=== PATIENT | female | born 1940 | race Caucasian/White ===

== ENCOUNTER 2020-12-01 11:45 | Inpatient (IN) ==
[2020-12-01] MEDS ORDERED: LACTATED RINGERS 1,000 ML IV ONE ×2 (11:53→12:23)
--- NOTE | 2020-12-01 12:01 | Emergency Department Note ---
HPI General Chief complaint: Altered Mental Status Stated complaint: altered mental status Time Seen by Provider: 12/01/20 11:53 Source: EMS Mode of arrival: EMS Limitations: altered mental status History of Present Illness HPI Narrative: Patient is an 80-year-old lady who arrives emergency department by ambulance complaining of altered mental status. History is provided by paramedics and review of the patient's medical records and is quite limited due to the patient's current medical condition. The patient apparently was in her usual state of health last night when going to bed. Ever since waking up this m orning, staff at her long-term have noticed that she has been confused and less interactive than usual. Her symptoms were sudden onset has been progressively worsening. Staff became concerned with the persistent nature of her symptoms they called 911 and she was transported to the hospital. Paramedics found her to have a prehospital glucose of 98. They noted that she was intermittently following commands but quite somnolent in route to the hospital. Nothing seems to make her symptoms any better or worse. Patient is unable to provide any useful history. Related Data Home Medications Medication Instructions Recorded Confirmed ascorbic acid (vitamin C) 500 mg 500 mg PO BID cap 04/02/20 12/01/20 capsule calcium carbonate 500 mg calcium 500 mg PO BID 04/02/20 12/01/20 (1,250 mg) chewable tablet cholecalciferol (vitamin D3) 50 50 mcg PO QDAY 04/02/20 12/01/20 mcg (2,000 unit) capsule melatonin 5 mg capsule 10 mg PO QHS cap 04/02/20 12/01/20 miconazole nitrate 2 % topical 1 applic TOPICAL PRN g 04/02/20 12/01/20 cream [id number] PO QDAY 04/02/20 10/15/20 [Centrum Silver] nystatin 100,000 unit/gram topical 1 applic TOPICAL BID PRN 04/02/20 12/01/20 powder solace cream 300mg CBD/3mg THC See Rx Instructions .ROUTE .COMPLEX 05/14/20 12/01/20 acetaminophen 650 mg 650 mg PO TID tab 10/15/20 12/01/20 tablet,extended release buspirone mg PO 12/01/20 Previous Rx's Medication Instructions Recorded aspirin 81 mg tablet,delayed 81 mg PO QDAY #90 tab 06/17/20 release rosuvastatin 5 mg tablet 5 mg PO QDAY #90 tab 06/17/20 amlodipine 10 mg tablet 10 mg PO QDAY #90 tab 06/23/20 cyanocobalamin (vitamin B-12) 1,000 mcg IM QMONTH #3 ml 06/23/20 1,000 mcg/mL injection solution ferrous sulfate 325 mg (65 mg 325 mg PO BID #180 tab 06/23/20 iron) tablet levothyroxine 100 mcg tablet 100 mcg PO QDAY #90 tab 06/23/20 omeprazole 40 mg capsule,delayed 40 mg PO QDAY #90 cap 06/23/20 release duloxetine 60 mg capsule,delayed 60 mg PO QDAY #90 cap 07/28/20 release hydroxyzine HCl 25 mg tablet 25 mg PO QDAY PRN #20 tab 07/28/20 pregabalin 150 mg capsule 150 mg PO TID #90 cap 11/16/20 oxycodone 5 mg tablet 5 mg PO BID #60 tab 12/01/20 Allergies Allergy/AdvReac Type Severity Reaction Status Date / Time bacitracin Allergy Unknown Rash, Verified 10/15/20 13:33 [From Neosporin Swelling ([id number])] carbamazepine [From Tegretol] Allergy Unknown Shuts down Verified 10/15/20 13:33 whole system slowly Neomycin Allergy Unknown Rash, Verified 10/15/20 13:33 [From Neosporin Swelling ([id number])] polymyxin B Allergy Unknown Rash, Verified 10/15/20 13:33 [From Neosporin Swelling ([id number])] risperidone Allergy Unknown Unknown Verified 10/15/20 13:33 Review of Systems ROS ROS Narrative: Narrative: Limitations: ROS unobtainable due to patients medical condition [facility] Narrative Patient History Narrative: Narrative: Medical/Surgical/Family History All Active Problems (Updated 12/01/20 @ 17:28 by Chava Bob DO) GERD (gastroesophageal reflux disease) (Chronic) Hypertension (Chronic) Depression (Chronic) Vitamin B deficiency, unspecified (Chronic) COPD (chronic obstructive pulmonary disease) (Chronic) Stroke (Chronic) Anxiety disorder (Chronic) Chronic neck pain (Chronic) Hypersomnia, unspecified (Chronic) Barretts esophagus (Chronic) Spasm of muscle (Chronic) Panic disorder without agoraphobia (Chronic) Dizziness (Chronic) Vertigo (Chronic) Fall (Chronic) History of (Chronic) History of gastric bypass (Chronic ~1998) History of back surgery (Chronic ~2001) Polyneuropathy (Chronic) Sciatica (Chronic) Chronic respiratory failure (Chronic) Chronic pain (Chronic) Osteoporosis (Chronic) Hypothyroidism (Chronic) Leg pain, bilateral (Chronic) Left hip pain (Chronic) Diabetes mellitus (Chronic) Dysphagia (Chronic) History of narcotic addiction (Chronic) 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) CKD stage G3b/A2, GFR 30-44 and albumin creatinine ratio 30-299 mg/g (Chronic) Microalbuminuria (Acute) Epistaxis (Acute) Substance abuse in remission (Acute) Knee pain, left (Chronic) Aortic valve insufficiency (Acute) Esophageal dysmotility (Acute) Arthritis (Chronic) Breast nodule (Acute) Opioid overdose (Acute) Medical History Anxiety disorder Aortic valve insufficiency mild ECHO 08/2020 Arthritis Barretts esophagus Breast nodule Left Chronic neck pain Chronic pain Chronic respiratory failure 2 L O2 CKD stage G3b/A2, GFR 30-44 and albumin creatinine ratio 30-299 mg/g COPD (chronic obstructive pulmonary disease) Depression Diabetes mellitus A1c 5.1% (06/2020) Dizziness Dysphagia Solids Esophageal dysmotility Fall GERD (gastroesophageal reflux disease) Hip fracture History of narcotic addiction Around year 1999 Hypersomnia, unspecified Hypertension Hypothyroidism Knee pain, left Left hip pain Leg pain, bilateral Medicare annual wellness visit, initial Nausea Osteoporosis Panic disorder without agoraphobia Polyneuropathy Sciatica Shortness of breath at rest Spasm of muscle Stroke Substance abuse in remission Systolic murmur Vertigo Vitamin B deficiency, unspecified Surgical History History of back surgery (~2001) History of X2 (195 and 1961) History of gastric bypass (~1998) Family History Grandmother Bladder cancer Maternal Brother Diabetes mellitus, type II Heart disease Hypertension Mother Hypertension Arthritis Chronic pain Father Hypertension Social History Smoking Status: Former smoker Alcohol Intake Frequency: does not drink Substance Use: does not use Exam Narrative Narrative: I reviewed the vital signs. Gen -patient is drowsy but arousable to brisk verbal stimuli and in no acute distress. The patient is well groomed. HEENT -head is atraumatic. There is no conjunctival pallor or scleral icterus. Mucous membranes are dry. CV -S1-S2 regular rate and rhythm. Peripheral pulses are palpable. There is no JVD. Resp -breathing is nonlabored. Lungs are clear to auscultation bilaterally. There is no cyanosis. GI - Abdomen is soft and nontender to palpation. There is no guarding or rebound tenderness. Derm -skin is warm and dry. There is no visible rash. MSK -present extremities are atraumatic. Psych -patient has a flat affect. The patient does not appear internally stimulated. Neuro -patient provides inconsistent one-word answers to questions. She is able to say her name but cannot tell me the year. She inconsistently follows some simple commands. There is no facial asymmetry. There is no obvious dysarthria or aphasia. Muscle strength is grossly symmetric in all 4 extremities. Pupils are constricted and reactive to light bilaterally. NIHSS=5 General Limitations: altered mental status Course Vital Signs Vital signs: Vital Signs Pulse Rate 65 12/01/20 11:46 Respiratory Rate 14 12/01/20 11:46 Blood Pressure 97/61 12/01/20 11:46 Pulse Oximetry (%) 92 12/01/20 11:46 Temperature 98.7 F 12/01/20 12:14 Pulse Rate 51 L 12/01/20 16:28 Respiratory Rate 14 12/01/20 12:14 Blood Pressure 161/111 12/01/20 16:28 Pulse Oximetry (%) 100 12/01/20 16:28 [facility] Narrative Medical decision making narrative: Patient presents with altered mental status. On arrival, she is quite somnolent but does not display any lateralizing neurologic findings concerning for acute ischemic stroke. CT scan reveals a possible lacunar infarct but no intracranial hemorrhage and no signs of massive stroke that would cause such profound neurologic deficits. Labs do not reveal any significant metabolic derangements. On reassessment, she remained quite somnolent and given this as well as the reported history of opiates being administered at her home we did administer 0.4 mg of naloxone. The patient reportedly then became awake and alert and was conversant with her nurse requesting discharge. By the time I returned to the room to reassess the patient she was once again somnolent with markedly constricted pupils. She was then given a second dose of naloxone and once again awoke and was able to converse with her nurse with no gross neurologic deficits. However once again upon my return to the room the patient was obtunded. She is protecting her airway and oxygenating well on her home oxygen. Given this I do not think she would benefit from a naloxone infusion. Overall the clinical presentation appears most consistent with an opioid overdose. As she has required 2 doses of naloxone and is still having per wound mental status changes I think she would benefit from admission and observation until she has fully metabolized the opioids. I discussed her history examination diagnostic findings with Dr. Aleman. He agrees with the plan to forego lumbar puncture given the patient's profound response to naloxone and accepts admission to his service. Critical care time I provided 31 minutes of critical care time. This was in addition to any separately billable procedures. The patient was evaluated for mental status changes and assess for possible ischemic stroke meningitis intracranial hemorrha ge or drug toxicity. She was given multiple doses of naloxone to facilitate this assessment and to prevent further progression to respiratory failure.. The patient was closely monitored for response to treatment and stability of vital signs throughout their emergency department stay. Lab Data Lab results reviewed: Yes I reviewed the patient's lab results. Result diagrams: 12/01/20 11:53 12/01/20 11:53 Labs: Lab Results 12/01/20 12/01/20 12/01/20 Range/Units 11:53 11:53 12:45 WBC 4.2 L (4.5-11.0) K/mcL RBC 3.75 (3.59-5.38) M/mcL Hgb 11.0 L (11.2-15.7) g/dL Hct 34.6 (34.1-44.9) % MCV 92.3 (80.0-100.0) fL MCH 29.3 (26.0-34.0) pg MCHC 31.8 (31.0-36.0) g/dL RDW 14.5 (11.5-14.5) % Plt Count 123 L (140-440) K/mcL MPV 11.6 H (7.4-10.4) fL Neut % (Auto) 49.1 (38.0-78.0) % Lymph % (Auto) 35.6 (15.5-49.0) % [place] % (Auto) 8.6 (1.0-12.0) % Eos % (Auto) 5.0 (0.0-7.0) % Baso % (Auto) 1.7 (0.0-2.0) % Lymph # (Auto) 1.50 (1.50-4.80) K/mcL [place] # (Auto) 0.36 (0.10-0.90) K/mcL Eos # (Auto) 0.21 (0.00-0.70) K/mcL Baso # (Auto) 0.07 (0.00-0.30) K/mcL Absolute Neutrophils 2.07 (1.80-8.00) K/mcL Sodium 140 (133-145) mmol/L Potassium 4.4 (3.3-5.1) mmol/L Chloride 105 (96-108) mmol/L Carbon Dioxide 27 (22-30) mmol/L Anion Gap 8.0 (8.0-16.0) BUN 21 (8-23) mg/dL Creatinine 0.8 (0.6-1.1) mg/dL GFR Calculation 69 Glucose 83 (70-105) mg/dL Calcium 8.4 L (8.6-10.4) mg/dL Total Bilirubin 0.3 (0.1-1.0) mg/dL AST 21 (<32) U/L ALT < 5 (<40) U/L Alkaline Phosphatase 66 (39-117) U/L Total Protein 5.9 (5.9-8.4) gm/dL Albumin 3.0 L (3.2-5.2) gm/dL Globulin 2.9 (2.2-3.7) gm/dL Albumin/Globulin Ratio 1.0 (1.0-2.3) TSH 0.71 (0.27-5.01) uIU/mL Urine Color Yellow Urine Appearance Clear (Clear) Urine pH 5.0 (5.0-9.0) Ur Specific [place] 1.011 (1.000-1.035) Urine Protein Negative (Negative) mg/dL Urine Glucose (UA) Negative (Negative) mg/dL Urine Ketones Negative (Negative) mg/dL Urine Occult Blood Negative (Negative) mg/dL Urine Nitrate Negative (Negative) Urine Bilirubin Negative (Negative) mg/dL Urine Urobilinogen Negative mg/dL Ur Leukocyte Esterase Negative (Negative) /uL Ur Culture Indicated? No ED POC Tests ED POC Tests: GENE - SARS Antigen Negative EKG Data EKG #1: EKG attestation: Yes I reviewed and interpreted this EKG. EKG results narrative: EKG performed at 12:09 PM: Sinus rhythm, rate 61. Normal P wave QRS and T wave morphology. No ST segment deviation. Normal [place] QRS and QTc duration. No old EKG immediately available for comparison. EKG was interpreted by me. Discharge Plan Patient/Caregiver Discharge Instructions Pt seen by SOAP MAKER/PA only: No Clinical Impression: Opioid overdose Patient Disposition: Xfer As Inpt ([facility]) Condition: Fair Follow up with: Julius Jimenez MD [Primary Care Provider] - Prescriptions: No Action duloxetine 60 mg capsule,delayed release(DR/EC) 60 mg PO QDAY Qty: 90 RF: 1 hydroxyzine HCl 25 mg tablet 25 mg PO QDAY PRN (Reason: anxiety) Qty: 20 RF: 0 cyanocobalamin (vitamin B-12) 1,000 mcg/mL solution 1,000 mcg IM QMONTH Qty: 3 RF: 1 levothyroxine 100 mcg tablet 100 mcg PO QDAY Qty: 90 RF: 1 omeprazole 40 mg capsule,delayed release(DR/EC) 40 mg PO QDAY Qty: 90 RF: 1 ferrous sulfate 325 mg (65 mg iron) tablet 325 mg PO BID Qty: 180 RF: 1 amlodipine 10 mg tablet 10 mg PO QDAY Qty: 90 RF: 1 pregabalin 150 mg capsule 150 mg PO TID Qty: 90 RF: 2 oxycodone 5 mg tablet 5 mg PO BID Qty: 60 RF: 0 solace cream 300mg CBD/3mg THC See Rx Instructions .ROUTE .COMPLEX RF: 0 cholecalciferol (vitamin D3) 50 mcg (2,000 unit) capsule 50 mcg PO QDAY RF: 0 ascorbic acid (vitamin C) 500 mg capsule 500 mg PO BID RF: 0 [id number] PO QDAY RF: 0 calcium carbonate 500 mg calcium (1,250 mg) tablet,chewable 500 mg PO BID RF: 0 melatonin 5 mg capsule 10 mg PO QHS RF: 0 miconazole nitrate 2 % cream 1 applic TOPICAL PRN RF: 0 nystatin 100,000 unit/gram powder 1 applic TOPICAL BID PRN (Reason: redness) RF: 0 acetaminophen 650 mg tablet extended release 650 mg PO TID RF: 0 aspirin [Adult Aspirin Regimen] 81 mg tablet,delayed release (DR/EC) 81 mg PO QDAY Qty: 90 RF: 3 rosuvastatin 5 mg tablet 5 mg PO QDAY Qty: 90 RF: 3 buspirone 5 mg tablet PO RF: 0
[2020-12-01] MEDS ORDERED: cefTRIAXone 1 GM VIAL IV ONE ×2 (12:23→14:41)
[2020-12-01 13:41] LABS: Appearance,Urine CLEAR (Clear); Bilirubin,Urine Negative (Negative); Color,Urine YELLOW; Culture Indicated,Urine No; Glucose,Urine (UA) Negative (Negative); Ketones,Urine Negative (Negative); Leukocyte Esterase,Urine Negative /uL (Negative); Nitrate,Urine Negative (Negative); Protein,Urine Negative (Negative); Specific Gravity,Urine 1.011 (1.000-1.035); Urine Blood Negative (Negative); Urobilinogen,Urine Negative
[2020-12-01 13:50] LABS: ALT/SGPT < 5 U/L (<40); AST/SGOT 21 U/L (<32); Alkaline Phosphatase 66 U/L (39-117); Bilirubin,Total 0.3 mg/dL (0.1-1.0); Blood Urea Nitrogen 21 mg/dL (8-23); Calcium 8.4 mg/dL (8.6-10.4); Carbon Dioxide 27 mmol/L (22-30); Chloride 105 mmol/L (96-108); Globulin 2.9 gm/dL (2.2-3.7); Glomerular Filtration Rate 69; Glucose 83 mg/dL (70-105)
[2020-12-01 13:56] LABS: Basophils # (Auto) 0.07 K/mcL (0.00-0.30); Basophils % (Auto) 1.7 % (0.0-2.0); Eosinophils # (Auto) 0.21 K/mcL (0.00-0.70); Hematocrit 34.6 % (34.1-44.9); Lymphocytes % (Auto) 35.6 % (15.5-49.0); Mean Cell Volume 92.3 fL (80.0-100.0); Mean Corpuscular HGB Conc 31.8 g/dL (31.0-36.0); Mean Platelet Volume 11.6 fL (7.4-10.4); Monocytes # (Auto) 0.36 K/mcL (0.10-0.90); Monocytes % (Auto) 8.6 % (1.0-12.0); Neutrophils % (Auto) 49.1 % (38.0-78.0); Platelet Count 123 K/mcL (140-440); RBC 3.75 M/mcL (3.59-5.38); Red Cell Distribution Width 14.5 % (11.5-14.5); WBC 4.2 K/mcL (4.5-11.0)
[2020-12-01 13:58] LABS: Thyroid Stimulating Hormone 0.71 uIU/mL (0.27-5.01)
[2020-12-01] MEDS ORDERED: NALOXONE HCL 0.4 MG/ML VIAL IV ONE ×2 (14:13→15:05)
--- NOTE | 2020-12-01 14:13 | XRay Report ---
HISTORY: Fell with left hip injury FINDINGS: No fracture or dislocation are present. There is moderate arthritis in the left hip with mild joint space narrowing and a ring of spurs around the margin of the femoral head. There also large spurs arising from the greater trochanter. There is an old healed fracture in the proximal right hip. Extensive postsurgical changes are present following fusion throughout the lumbar spine extending down to the sacrum. The bones are osteoporotic. IMPRESSION: Arthritis in the left hip with no fracture. No change since 06/10/20 Interpreted and Authenticated by: Ari Escobar 12/01/20
--- NOTE | 2020-12-01 14:15 | XRay Report ---
HISTORY: Altered mental status, pneumonia FINDINGS: The heart is mildly enlarged. There is a vague haziness in the lung parenchyma around both estrellita and in both lower lobes. There are also several curly B lines in the periphery of both lower lobes. No pleural effusion is present. There is no lobar consolidation. Aorta is moderately tortuous. IMPRESSION: Cardiomegaly Pneumonia versus congestive heart failure. Interpreted and Authenticated by: Ari Escobar 12/01/20
--- NOTE | 2020-12-01 14:32 | Cat Scan Report ---
History: Altered mental status The radiation exposure was limited using dose reduction technology. FINDINGS: In the anterior limb of the left internal capsule there is a subtle zone of decreased attenuation which measures 6 x 7 mm in size. There is no mass effect. Larger confluent areas of decreased attenuation are present in the jain radiata and centrum semiovale in the frontal and parietal lobes bilaterally. There is no evidence of cortical infarct. No hemorrhage or mass effect are present. There is mild generalized atrophy. The ventricles and cisterns are normal. There are few calcifications in the vertebral arteries at the foramen magnum and in the cavernous portions of both internal carotids. Bone windows show no skull lesion. IMPRESSION: Age-related degenerative changes with atrophy and white matter ischemia or degeneration. Possible small lacunar infarct in the anterior limb of the left internal capsule. Dr. Bob was called with the report Interpreted and Authenticated by: Ari Escobar 12/01/20
[2020-12-01] MEDS ORDERED: VANCOMYCIN PER PHARMACY IV ONE (14:41)
[2020-12-01] MEDS ORDERED: VANCOMYCIN 1,500 MG in 0.9 % SODIUM CHLORIDE 500 ML IV ONE (15:00)
[2020-12-01] MEDS ORDERED: ACYCLOVIR SODIUM 500 MG VIAL IV SCH (15:00)
--- NOTE | 2020-12-01 16:04 | Internal Med History&Physical ---
HPI History of Present Illness Patient information: Note initiated : 12/01/20 at 4:01 pm Service Date, if different from initiated Date: [] Patient: Mely Cullen 80 y/o F admitted on for altered mental status. Chief Complaint: [confusion] History of present illness: Ms. Cullen is a 80 year old female with a history of multiple comorbidities including hypertension, COPD (on 2 l/min oxygen), prior stroke, Lam's esophagus, depression, history of gastric bypass, hypothyroidism, obesity, chronic pain on opioids who lives in a alf and was brought to the [facility] ED on 12/01/20 for altered mental status. The patient was given narcan .4 mg IV in the ED twice followed by brief improvement in cognition each time. The patient was afebrile and there were no clinical signs of infection. The patient had a noncontrast head CT in the ED which showed a possible small lacunar infarct in the anterior limb of the left internal capsule however that did not explain the patient's encephalopathy. Laboratory work did not reveal a metabolic explanation for encephalopathy. The most likely explanation for the patient's encephalopathy is opioid overdose. Hospital medicine was asked to admit the patient. Review of systems:unable to obtain due to altered mental status Physical exam General: Chronically ill appearing female in no apparent distress. Head: Atraumatic, normal inspection. Eyes: bilateral miosis, no scleral icterus. Neck: full ROM Respiratory: 2 l/min nasal canula oxygen, no respiratory distress. Cardiovascular: normal rate and rhythm, S1, S2. GI/Abdominal: soft, nontender, no guarding. Extremities: full range of motion, nontender. Neurological: CN II-XII intact, intact motor, intact sensation. Psychiatric: drowsy Skin: warm, normal color PFSH PFSH All Active Problems (Updated 12/01/20 @ 17:28 by Chava Bob DO) GERD (gastroesophageal reflux disease) (Chronic) Hypertension (Chronic) Depression (Chronic) Vitamin B deficiency, unspecified (Chronic) COPD (chronic obstructive pulmonary disease) (Chronic) Stroke (Chronic) Anxiety disorder (Chronic) Chronic neck pain (Chronic) Hypersomnia, unspecified (Chronic) Barretts esophagus (Chronic) Spasm of muscle (Chronic) Panic disorder without agoraphobia (Chronic) Dizziness (Chronic) Vertigo (Chronic) Fall (Chronic) History of (Chronic) History of gastric bypass (Chronic ~1998) History of back surgery (Chronic ~2001) Polyneuropathy (Chronic) Sciatica (Chronic) Chronic respiratory failure (Chronic) Chronic pain (Chronic) Osteoporosis (Chronic) Hypothyroidism (Chronic) Leg pain, bilateral (Chronic) Left hip pain (Chronic) Diabetes mellitus (Chronic) Dysphagia (Chronic) History of narcotic addiction (Chronic) 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) CKD stage G3b/A2, GFR 30-44 and albumin creatinine ratio 30-299 mg/g (Chronic) Microalbuminuria (Acute) Epistaxis (Acute) Substance abuse in remission (Acute) Knee pain, left (Chronic) Aortic valve insufficiency (Acute) Esophageal dysmotility (Acute) Arthritis (Chronic) Breast nodule (Acute) Opioid overdose (Acute) Medical History Anxiety disorder Aortic valve insufficiency mild ECHO 08/2020 Arthritis Barretts esophagus Breast nodule Left Chronic neck pain Chronic pain Chronic respiratory failure 2 L O2 CKD stage G3b/A2, GFR 30-44 and albumin creatinine ratio 30-299 mg/g COPD (chronic obstructive pulmonary disease) Depression Diabetes mellitus A1c 5.1% (06/2020) Dizziness Dysphagia Solids Esophageal dysmotility Fall GERD (gastroesophageal reflux disease) Hip fracture History of narcotic addiction Around year 1999 Hypersomnia, unspecified Hypertension Hypothyroidism Knee pain, left Left hip pain Leg pain, bilateral Medicare annual wellness visit, initial Nausea Osteoporosis Panic disorder without agoraphobia Polyneuropathy Sciatica Shortness of breath at rest Spasm of muscle Stroke Substance abuse in remission Systolic murmur Vertigo Vitamin B deficiency, unspecified Surgical History History of back surgery (~2001) History of X2 (1958 and 1961) History of gastric bypass (~1998) Family History Grandmother Bladder cancer Maternal Brother Diabetes mellitus, type II Heart disease Hypertension Mother Hypertension Arthritis Chronic pain Father Hypertension Social History adopted: No foster care: No housing: assisted living facility marital status: occupational status: retired smoking status: Former smoker quit date: 02/19/1959 pack-years: 5 alcohol intake frequency: does not drink substance use type: does not use MEDS/ALLERGIES Home Medications and Allergies Home Medications Medication Instructions Recorded Confirmed Type ascorbic acid (vitamin C) 500 mg 500 mg PO BID cap 04/02/20 12/01/20 History capsule calcium carbonate 500 mg calcium 500 mg PO BID 04/02/20 12/01/20 History (1,250 mg) chewable tablet cholecalciferol (vitamin D3) 50 50 mcg PO QDAY 04/02/20 12/01/20 History mcg (2,000 unit) capsule melatonin 5 mg capsule 10 mg PO QHS cap 04/02/20 12/01/20 History miconazole nitrate 2 % topical 1 applic TOPICAL PRN g 04/02/20 12/01/20 History cream [id number]-[id number] 1 tab PO QDAY 04/02/20 10/15/20 History [Centrum Silver] nystatin 100,000 unit/gram topical 1 applic TOPICAL BID PRN 04/02/20 12/01/20 Hi story powder solace cream 300mg CBD/3mg THC See Rx Instructions .ROUTE .COMPLEX 05/14/20 12/01/20 History aspirin 81 mg tablet,delayed 81 mg PO QDAY #90 tab 06/17/20 12/01/20 Rx release rosuvastatin 5 mg tablet 5 mg PO QDAY #90 tab 06/17/20 12/01/20 Rx amlodipine 10 mg tablet 10 mg PO QDAY #90 tab 06/23/20 12/01/20 Rx cyanocobalamin (vitamin B-12) 1,000 mcg IM QMONTH #3 ml 06/23/20 12/01/20 Rx 1,000 mcg/mL injection solution ferrous sulfate 325 mg (65 mg 325 mg PO BID #180 tab 06/23/20 12/01/20 Rx iron) tablet levothyroxine 100 mcg tablet 100 mcg PO QDAY #90 tab 06/23/20 12/01/20 Rx omeprazole 40 mg capsule,delayed 40 mg PO QDAY #90 cap 06/23/20 12/01/20 Rx release duloxetine 60 mg capsule,delayed 60 mg PO QDAY #90 cap 07/28/20 12/01/20 Rx release hydroxyzine HCl 25 mg tablet 25 mg PO QDAY PRN #20 tab 07/28/20 12/01/20 Rx acetaminophen 650 mg 650 mg PO TID tab 10/15/20 12/01/20 History tablet,extended release pregabalin 150 mg capsule 150 mg PO TID #90 cap 11/16/20 12/01/20 Rx buspirone 5 mg PO BID 12/01/20 12/01/20 History oxycodone 5 mg tablet 5 mg PO BID #60 tab 12/01/20 12/01/20 Rx Allergies Allergy/AdvReac Type Severity Reaction Status Date / Time bacitracin Allergy Unknown Rash, Verified 10/15/20 13:33 [From Neosporin Swelling ([id number])] carbamazepine [From Tegretol] Allergy Unknown Shuts down Verified 10/15/20 13:33 whole system slowly Neomycin Allergy Unknown Rash, Verified 10/15/20 13:33 [From Neosporin Swelling ([id number])] polymyxin B Allergy Unknown Rash, Verified 10/15/20 13:33 [From Neosporin Swelling ([id number])] risperidone Allergy Unknown Unknown Verified 10/15/20 13:33 EXAM Constitutional Vitals: Temp Pulse Resp BP Pulse Ox 98.7 F 69 14 131/75 100 12/01/20 12:14 12/01/20 15:32 12/01/20 12:14 12/01/20 15:32 12/01/20 15:32 DATA Data Completed and Pending Labs: Labs from last 24 hours 12/01/20 12/01/20 12/01/20 12:45 11:53 11:53 WBC 4.2 L RBC 3.75 Hgb 11.0 L Hct 34.6 MCV 92.3 MCH 29.3 MCHC 31.8 RDW 14.5 Plt Count 123 L MPV 11.6 H Neut % (Auto) 49.1 Lymph % (Auto) 35.6 [place] % (Auto) 8.6 Eos % (Auto) 5.0 Baso % (Auto) 1.7 Lymph # (Auto) 1.50 [place] # (Auto) 0.36 Eos # (Auto) 0.21 Baso # (Auto) 0.07 Absolute Neutrophils 2.07 Sodium 140 Potassium 4.4 Chloride 105 Carbon Dioxide 27 Anion Gap 8.0 BUN 21 Creatinine 0.8 GFR Calculation 69 Glucose 83 Calcium 8.4 L Total Bilirubin 0.3 AST 21 ALT < 5 Alkaline Phosphatase 66 Total Protein 5.9 Albumin 3.0 L Globulin 2.9 Albumin/Globulin Ratio 1.0 TSH 0.71 Urine Color Yellow Urine Appearance Clear Urine pH 5.0 Ur Specific [place] 1.011 Urine Protein Negative Urine Glucose (UA) Negative Urine Ketones Negative Urine Occult Blood Negative Urine Nitrate Negative Urine Bilirubin Negative Urine Urobilinogen Negative Ur Leukocyte Esterase Negative Ur Culture Indicated? No A/P Narrative A/P Narrative: Assessment: 80 year old female with a history hypertension, COPD (on 2 l/min oxygen), prior stroke, Lam's esophagus, depression, history of gastric bypass, hypothyroidism, obesity, chronic pain on opioids who lives in a alf admitted for encephalopathy probably due to an unintentional opioid overdose. Workup included a CT head which showed a possible lacunar infarct. #Encephalopathy likely due to opioid overdose #Unintentional opioid overdose #Possible lacunar infarct, unknown chronicity #Leukopenia #Thrombocytopenia #COPD on 2 l/min #Hypertension #Lam's esophagus #Hypothyroidism #Hx of gastric bypass #Chronic pain on opioids #Obesity BMI 32 Plan -Admit to PCU for close monitoring. -Narcan .4 mg IV prn. -Neuro checks. -Hold home oxycodone. -NPO until safe for oral intake. -Repeat CBC in AM. -COVID PCR. -Home medication reconciliation, resume essential meds. -cafeteria monitor -Consider MRI brain when encephalopathy improves. -DVT ppx: Lovenox -Code status: Full -Disposition: Back to alf when stable. Time Spent With Patient Time: Total time spent is greater than 50% in coordination of care (as doc umented) at patient's floor/unit and/or counseling patient:
--- NOTE | 2020-12-01 16:57 | EKG ---
[facility] Test Date: 2020-12-01 Pat Name: Mely Cullen Department: ED Room: Gender: Female Conference Translator: angus : 1940 Requested By: Chava Bob Order Number: [id number] Reading MD: Gagan Pascal Measurements Intervals [place] Rate: 61 P: 57 IA: 161 QRS: -1 QRSD: 90 T: 75 QT: 429 QTc: 432 Interpretive Statements Sinus rhythm Low voltage, precordial leads Baseline wander in lead(s) V1 Electronically Signed On 12-01-2020 16:56:52 PDT by Gagan Pascal /store/M0/[id number].pdf
[2020-12-01] MEDS ORDERED: LACTULOSE 20 GM/30 ML ORAL.SOL PO PRN (18:14)
[2020-12-01] MEDS ORDERED: ONDANSETRON 4 MG/2 ML VIAL IV PRN (18:14)
[2020-12-01] MEDS ORDERED: NALOXONE HCL 0.4 MG/ML VIAL IV PRN (18:14)
[2020-12-01] MEDS ORDERED: KETOROLAC 15 MG/ML VIAL IV PRN (18:14)
[2020-12-01] MEDS ORDERED: SENNOSIDES 1 TABLET PO PRN (18:14)
[2020-12-01] MEDS: ACETAMINOPHEN 1,000 MG/100 ML BAG IV PRN (21:26)
[2020-12-01] MEDS: 0.9 % SODIUM CHLORIDE 10 ML SYRINGE IV SCH (21:27)
[2020-12-01] MEDS: DOCUSATE SODIUM 100 MG CAPSULE PO SCH (21:27)
[2020-12-02] MEDS: ACETAMINOPHEN 1,000 MG/100 ML BAG IV PRN (05:32)
[2020-12-02] MEDS: 0.9 % SODIUM CHLORIDE 10 ML SYRINGE IV SCH ×3 (05:37→22:09)
[2020-12-02] MEDS ORDERED: OMEPRAZOLE 20 MG CAPSULE PO SCH (07:30)
[2020-12-02] MEDS ORDERED: hydrOXYzine 25 MG TABLET PO PRN ×2 (08:21→13:09)
[2020-12-02] MEDS ORDERED: BUTALB/ACETAMINOPHEN/CAFFEINE 1 TABLET PO PRN ×2 (08:22→13:09)
[2020-12-02] MEDS ORDERED: amLODIPine 10 MG TABLET PO SCH (09:00)
[2020-12-02] MEDS ORDERED: ATORVASTATIN 10 MG TABLET PO SCH (09:00)
[2020-12-02] MEDS ORDERED: PREGABALIN 150 MG CAPSULE PO SCH (09:00)
[2020-12-02] MEDS ORDERED: DULoxetine 30 MG CAPSULE PO SCH (09:00)
[2020-12-02] MEDS ORDERED: ASPIRIN 81 MG TAB.CHEW PO SCH (09:00)
[2020-12-02] MEDS ORDERED: busPIRone 5 MG TABLET PO SCH (09:00)
[2020-12-02] MEDS ORDERED: LEVOTHYROXINE 100 MCG TABLET PO SCH (09:00)
[2020-12-02] MEDS ORDERED: ENOXAPARIN 40 MG/0.4 ML SYRINGE SQ SCH (09:00)
[2020-12-02] MEDS: DOCUSATE SODIUM 100 MG CAPSULE PO SCH ×2 (09:33→20:08)
--- NOTE | 2020-12-02 10:08 | Cat Scan Report ---
History: New headaches, altered mental status, possible stroke TECHNIQUE: The brain was imaged without contrast in axial plane at 2.5 mm intervals. Sagittal and coronal reformats were created. The radiation exposure was limited using dose reduction technology. FINDINGS: Mild generalized cerebral atrophy is present. There are ill-defined zones of decreased attenuation in the centrum semiovale and jain radiata bilaterally. There is also involvement in the anterior limb of the left internal capsule. No acute infarct is detected. There is no hemorrhage or mass effect. The ventricles are normal in size allowing for atrophy. No abnormal extra-axial fluid collection is present. Comparison with the prior head CT performed yesterday shows no change. IMPRESSION: Stable age-related degenerative changes and no acute abnormality Interpreted and Authenticated by: Ari Escobar 12/02/20
[2020-12-02] MEDS ORDERED: ACETAMINOPHEN 1,000 MG/100 ML BAG IV PRN (13:09)
[2020-12-02] MEDS ORDERED: LABETALOL 5 MG/ML ML IV PRN (13:09)
[2020-12-02] MEDS ORDERED: NALOXONE HCL 0.4 MG/ML VIAL IV PRN (13:09)
[2020-12-02] MEDS ORDERED: KETOROLAC 15 MG/ML VIAL IV PRN (13:09)
[2020-12-02] MEDS ORDERED: LACTULOSE 20 GM/30 ML ORAL.SOL PO PRN (13:09)
[2020-12-02] MEDS ORDERED: SENNOSIDES 1 TABLET PO PRN (13:09)
[2020-12-02] MEDS ORDERED: ONDANSETRON 4 MG/2 ML VIAL IV PRN (13:09)
--- NOTE | 2020-12-02 15:07 | Internal Med Progress Note ---
SUBJECTIVE Subjective Patient information: Note initiated : 12/02/20 at 3:03 pm Service Date, if different from initiated Date: [] Patient: Mely Cullen 80 y/o F admitted on 12/01/20 for altered mental status. Chief Complaint: [] Interval history: Ms. Cullen is a 80 year old female with a history of multiple comorbidities including hypertension, COPD (on 2 l/min oxygen), prior stroke, Lam's esophagus, depression, history of gastric bypass, hypothyroidism, obesity, chronic pain on opioids who lives in a intermediate and was brought to the [facility] ED on 12/01/20 for altered mental status. The patient was given narcan .4 mg IV in the ED twice followed by brief improvement in cognition each time. The patient was afebrile and there were no clinical signs of infection. The patient had a noncontrast head CT in the ED which showed a possible small lacunar infarct in the anterior limb of the left internal capsule however that did not explain the patient's encephalopathy. Laboratory work did not reveal a metabolic explanation for encephalopathy. The most likely explanation for the patient's encephalopathy is opioid overdose. Hospital medicine was asked to admit the patient. 12/02: Mental status improved, the patient refused to have an MRI brain due to claustrophobia. Repeat CT head today showed no changes compared to yesterday. Transfer to med/surg. Physical exam General: Chronically ill appearing female in no apparent distress. Head: Atraumatic, normal inspection. Eyes: no scleral icterus. Neck: full ROM Respiratory: 2 l/min nasal canula oxygen, no respiratory distress. Cardiovascular: normal rate and rhythm, S1, S2. GI/Abdominal: soft, nontender, no guarding. Extremities: full range of motion, nontender. Neurological: CN II-XII intact, intact motor, intact sensation. Psychiatric: normal mood Skin: warm, normal color Constitutional Vitals: Vital Signs Temp Pulse Resp BP Pulse Ox 97.6 F 82 16 108/65 92 12/02/20 14:47 12/02/20 14:47 12/02/20 14:47 12/02/20 14:47 12/02/20 14:47 Period Temp Pulse Resp BP Sys/Davis Pulse Ox Last 24 Hr 96.4 F-98.4 F 51-84 16-20 105-185/54-111 89-100 Intake and Output 12/02/20 12/02/20 12/02/20 05:59 13:59 21:59 Intake Total 100 100 Output Total 975 425 350 Balance -885 -067 -360 Weight 89.947 kg Patient Weight 12/03/20 05:59 Weight 89.947 kg Intake & Output: Intake & Output 12/02/20 12/02/20 12/02/20 05:59 13:59 21:59 Intake Total 100 100 Output Total 975 425 350 Balance -303 -719 -350 Weight 89.947 kg Intake: IV 100 100 Output: Urine Catheter Amount 975 425 350 Other: Meal Breakfast Lunch Percent of Meal Consumed 50% 75% Feeding Ability Assist with Tray Set Up Assist with Tray Set Up Urine Appearance Clear Clear Clear Sediment Urine Color Bright Yellow Dark Jane Dark Jane Urine Odor Normal Normal OBJ DATA Labs CBC & Chem 7: 12/01/20 11:53 12/01/20 11:53 Labs: Abnormal Lab Results 12/01/20 12/01/20 11:53 11:53 WBC 4.2 L Hgb 11.0 L Plt Count 123 L MPV 11.6 H Calcium 8.4 L Albumin 3.0 L Meds: Medications Acetaminophen/Butalbital/Caffeine (Butalb/Acetaminophen/Caffeine 1 Tablet) 1 tab PO Q6HP PRN PRN Reason: Headache Amlodipine Besylate (Amlodipine 10 Mg Tablet) 10 mg PO QDAY JENNY Atorvastatin Calcium (Atorvastatin 10 Mg Tablet) 10 mg PO DAILY JENNY Buspirone HCl (Buspirone 5 Mg Tablet) 5 mg PO BID JENNY Docusate Sodium (Docusate Sodium 100 Mg Capsule) 100 mg PO BID EJNNY Duloxetine HCl (Duloxetine 30 Mg Capsule) 60 mg PO DAILY JENNY Enoxaparin Sodium (Enoxaparin 40 Mg/0.4 Ml Syringe) 40 mg SQ DAILY JENNY Hydroxyzine HCl (Hydroxyzine 25 Mg Tablet) 25 mg PO DAILYP PRN PRN Reason: anxiety Acetaminophen (Ofirmev) 1,000 mg in 100 mls @ 200 mls/hr IV Q8HP PRN; Protocol PRN Reason: Pain Ketorolac Tromethamine (Ketorolac 15 Mg/Ml Vial) 15 mg IV Q6HP PRN PRN Reason: Per Pain Protocol Stop: 12/03/20 15:59 Labetalol HCl (Labetalol 5 Mg/Ml Ml) 10 mg IV Q10M PRN PRN Reason: Blood Pressure Lactulose (Lactulose 20 Gm/30 Ml Oral.Lizzie) 10 gm PO DAILYP PRN PRN Reason: Constipation Levothyroxine Sodium (Levothyroxine 100 Mcg Tablet) 100 mcg PO ACB JENNY Lisinopril (Lisinopril 5 Mg Tablet) 5 mg PO DAILY JENNY Naloxone HCl (Naloxone Hcl 0.4 Mg/Ml Vial) 0.4 mg IV Q10M PRN PRN Reason: Opiate Reversal Omeprazole (Omeprazole 20 Mg Capsule) 40 mg PO ACB JENNY Ondansetron HCl (Ondansetron 4 Mg/2 Ml Vial) 4 mg IV Q4HP PRN; Protocol PRN Reason: Nausea And Vomiting Pregabalin (Pregabalin 150 Mg Capsule) 150 mg PO TID JENNY Senna (Sennosides 1 Tablet) 2 tab PO HSP PRN PRN Reason: Constipation Sodium Chloride (0.9 % Sodium Chloride 10 Ml Syringe) 10 ml IV Q8 [facility] Last Admin: 12/02/20 14:54 Dose: 10 ml Documented by: A/P Narrative A/P Narrative: Assessment: 80 year old female with a history hypertension, COPD (on 2 l/min oxygen), prior stroke, Lam's esophagus, depression, history of gastric bypass, hypothyroidism, obesity, chronic pain on opioids who lives in a intermediate admitted for encephalopathy probably due to an unintentional opioid overdose. Workup included a CT head which showed a possible lacunar infarct. #Resolved encephalopathy likely due to opioid overdose #Unintentional opioid overdose #Headache-likely migraine #Possible lacunar infarct, unknown chronicity #Leukopenia #Thrombocytopenia #COPD on 2 l/min #Hypertension #Lam's esophagus #Hypothyroidism #Hx of gastric bypass #Chronic pain on opioids #Obesity BMI 32 Plan -Transfer to med/surg -Non-opioid analgesics for headache. -Narcan .4 mg IV prn. -Discontinue neuro checks. -Hold home oxycodone. -Add lisinopril for hypertension, contineu norvasc. -Essential home meds. -telemetry monitor -PT consult -DVT ppx: Lovenox -Code status: Full -Disposition: Back to intermediate when stable. Time Spent With Patient Time: Total time spent is greater than 50% in coordination of care (as documented) at patient's floor/unit and/or counseling patient: QUALITY VTE Deep Vein Thrombosis/Pulmonary Embolism Present on Admission: No
[2020-12-02] MEDS: PREGABALIN 150 MG CAPSULE PO SCH ×2 (15:31→20:08)
[2020-12-02] MEDS: busPIRone 5 MG TABLET PO SCH (20:08)
[2020-12-02] MEDS: MELATONIN 3 MG TABLET PO SCH (20:08)
[2020-12-03 08:14] LABS: Basophils # (Auto) 0.06 K/mcL (0.00-0.30); Eosinophils # (Auto) 0.24 K/mcL (0.00-0.70); Eosinophils % (Auto) 4.1 % (0.0-7.0); Hematocrit 38.3 % (34.1-44.9); Lymphocytes # (Auto) 1.56 K/mcL (1.50-4.80); Lymphocytes % (Auto) 26.4 % (15.5-49.0); Mean Cell Volume 93.2 fL (80.0-100.0); Mean Corpuscular HGB Conc 31.3 g/dL (31.0-36.0); Mean Platelet Volume 11.4 fL (7.4-10.4); Monocytes # (Auto) 0.68 K/mcL (0.10-0.90); Monocytes % (Auto) 11.5 % (1.0-12.0); Platelet Count 128 K/mcL (140-440); RBC 4.11 M/mcL (3.59-5.38); Red Cell Distribution Width 14.5 % (11.5-14.5); WBC 5.9 K/mcL (4.5-11.0)
[2020-12-03 08:30] LABS: ALT/SGPT 13 U/L (<40); AST/SGOT 22 U/L (<32); Albumin/Globulin Ratio 0.9 (1.0-2.3); Alkaline Phosphatase 66 U/L (39-117); Bilirubin,Direct < 0.2 mg/dL (0-0.3); Bilirubin,Total 0.2 mg/dL (0.1-1.0); Blood Urea Nitrogen 17 mg/dL (8-23); Calcium 8.8 mg/dL (8.6-10.4); Carbon Dioxide 26 mmol/L (22-30); Chloride 106 mmol/L (96-108); Globulin 3.2 gm/dL (2.2-3.7); Glomerular Filtration Rate 53; Glucose 91 mg/dL (70-105); Lactate Dehydrogenase 195 U/L (135-225); Phosphorous 3.7 mg/dL (2.5-4.5); Triglycerides 77 mg/dL (<150); Uric Acid 6.3 mg/dL (2.5-8.0)
[2020-12-03] MEDS: PREGABALIN 150 MG CAPSULE PO SCH ×3 (09:14→23:24)
[2020-12-03] MEDS: amLODIPine 10 MG TABLET PO SCH (09:15)
[2020-12-03] MEDS: LEVOTHYROXINE 100 MCG TABLET PO SCH (09:15)
[2020-12-03] MEDS: busPIRone 5 MG TABLET PO SCH ×2 (09:15→23:24)
[2020-12-03] MEDS: LISINOPRIL 5 MG TABLET PO SCH (09:15)
[2020-12-03] MEDS: ENOXAPARIN 40 MG/0.4 ML SYRINGE SQ SCH (09:15)
[2020-12-03] MEDS: ATORVASTATIN 10 MG TABLET PO SCH (09:15)
[2020-12-03] MEDS: DOCUSATE SODIUM 100 MG CAPSULE PO SCH ×2 (09:16→23:24)
[2020-12-03] MEDS: OMEPRAZOLE 20 MG CAPSULE PO SCH (09:27)
[2020-12-03] MEDS: 0.9 % SODIUM CHLORIDE 10 ML SYRINGE IV SCH ×3 (09:31→23:24)
--- NOTE | 2020-12-03 10:40 | Discharge Summary ---
Discharge Provider Provider Patient information: Note initiated : 12/03/20 at 10:38 am Service Date, if different from initiated Date: [] Patient: Mely Cullen 80 y/o F admitted on 12/01/20 for altered mental status. Chief Complaint: [] Date of admission: 12/01/20 17:57 Discharge date: 12/03/20 Primary care physician: Julius Jimenez MD Consults: 12/01/20 Consult to Physician [CONS] Stat Comment: Consulting Provider: Marvel Aleman Reason For Exam: Physician to Consult Discharge Meds Discharge Medications Home Medications ascorbic acid (vitamin C) 500 mg capsule 500 mg PO BID cap 04/02/20 [History Confirmed 12/01/20 Last Taken 12/01/20] calcium carbonate 500 mg calcium (1,250 mg) chewable tablet 500 mg PO BID 04/02/20 [History Confirmed 12/01/20 Last Taken Unknown] cholecalciferol (vitamin D3) 50 mcg (2,000 unit) capsule 50 mcg PO QDAY 04/02/20 [History Confirmed 12/01/20 Last Taken 12/01/20] melatonin 5 mg capsule 10 mg PO QHS cap 04/02/20 [History Confirmed 12/01/20 Last Taken Unknown] miconazole nitrate 2 % topical cream 1 applic TOPICAL PRN g 04/02/20 [History Confirmed 12/01/20 Last Taken Unknown] [id number] [Centrum Silver] 1 tab PO QDAY 04/02/20 [History Confirmed 12/01/20 Last Taken Unknown] nystatin 100,000 unit/gram topical powder 1 applic TOPICAL BID PRN 04/02/20 [History Confirmed 12/01/20 Last Taken Unknown] solace cream 300mg CBD/3mg THC See Rx Instructions .ROUTE .COMPLEX 05/14/20 [History Confirmed 12/01/20 Last Taken Unknown] aspirin 81 mg tablet,delayed release 81 mg PO QDAY #90 tab 06/17/20 [Rx Confirmed 12/01/20 Last Taken Unknown] rosuvastatin 5 mg tablet 5 mg PO QDAY #90 tab 06/17/20 [Rx Confirmed 12/01/20 Last Taken Unknown] amlodipine 10 mg tablet 10 mg PO QDAY #90 tab 06/23/20 [Rx Confirmed 12/01/20 Last Taken 12/01/20] cyanocobalamin (vitamin B-12) 1,000 mcg/mL injection solution 1,000 mcg IM QMONTH #3 ml 06/23/20 [Rx Confirmed 12/01/20 Last Taken 11/25/20] ferrous sulfate 325 mg (65 mg iron) tablet 325 mg PO BID #180 tab 06/23/20 [Rx Confirmed 12/01/20 Last Taken 12/01/20] levothyroxine 100 mcg tablet 100 mcg PO QDAY #90 tab 06/23/20 [Rx Confirmed 12/01/20 Last Taken 12/01/20] omeprazole 40 mg capsule,delayed release 40 mg PO QDAY #90 cap 06/23/20 [Rx Confirmed 12/01/20 Last Taken 12/01/20] duloxetine 60 mg capsule,delayed release 60 mg PO QDAY #90 cap 07/28/20 [Rx Confirmed 12/01/20 Last Taken 12/01/20] hydroxyzine HCl 25 mg tablet 25 mg PO QDAY PRN #20 tab 07/28/20 [Rx Confirmed 12/01/20 Last Taken Unknown] acetaminophen 650 mg tablet,extended release 650 mg PO TID tab 10/15/20 [History Confirmed 12/01/20 Last Taken 12/01/20] pregabalin 150 mg capsule 150 mg PO TID #90 cap 11/16/20 [Rx Confirmed 12/01/20 Last Taken 12/01/20] buspirone 5 mg PO BID 12/01/20 [History Confirmed 12/01/20 Last Taken Unknown] lisinopril 5 mg PO DAILY #30 tab 12/03/20 [Rx Last Taken Unknown] COURSE Hospital Course Hospital course: Ms. Cullen is a 80 year old female with a history of multiple comorbidities including hypertension, COPD (on 2 l/min oxygen), prior stroke, Lam's esophagus, depression, history of gastric bypass, hypothyroidism, obes ity, chronic pain on opioids who lives in a senior living and was brought to the [facility] ED on 12/01/20 for altered mental status. The patient was given narcan .4 mg IV in the ED twice followed by brief improvement in cognition each time. The patient was afebrile and there were no clinical signs of infection. The patient had a noncontrast head CT in the ED which showed a possible small lacunar infarct in the anterior limb of the left internal capsule however that did not explain the patient's encephalopathy. Laboratory work did not reveal a metabolic explanation for encephalopathy. The most likely explanation for the patient's encephalopathy is opioid overdose. Hospital medicine was asked to admit the patient. 12/02: Mental status improved, the patient refused to have an MRI brain due to claust rophobia. Head today with migraine characteristics. Repeat CT head today showed no changes compared to yesterday. Transfer to med/surg. 12/03: Discharged back to senior living, did not resume oxycodone. Discharged on additional lisinopril for blood pressure and continued prior norvasc. Physical exam General: Chronically ill appearing female in no apparent distress. Head: Atraumatic, normal inspection. Eyes: no scleral icterus. Neck: full ROM Respiratory: 2 l/min nasal canula oxygen, no respiratory distress. Cardiovascular: normal rate and rhythm, S1, S2. GI/Abdominal: soft, nontender, no guarding. Extremities: full range of motion, nontender. Neurological: CN II-XII intact, intact motor, intact sensation. Psychiatric: normal mood Skin: warm, normal color Discharge diagnosis: Opioid overdose-unintentional Secondary discharge diagnosis: Possible lacunar infarct-unknown chronicity Time Spent with Patient Time attestation: Total time spent providing and/or coordinating discharge services: EXAM Constitutional Vitals: Temp Pulse Resp BP Pulse Ox 97.1 F 70 20 161/84 96 12/03/20 03:41 12/03/20 03:41 12/03/20 03:41 12/03/20 03:41 12/03/20 03:41 Discharge Data Data Completed and Pending Labs on day of discharge: Labs from last 24 hours 12/03/20 12/03/20 06:50 06:49 WBC 5.9 RBC 4.11 Hgb 12.0 Hct 38.3 MCV 93.2 MCH 29.2 MCHC 31.3 RDW 14.5 Plt Count 128 L MPV 11.4 H Neut % (Auto) 57.0 Lymph % (Auto) 26.4 [place] % (Auto) 11.5 Eos % (Auto) 4.1 Baso % (Auto) 1.0 Lymph # (Auto) 1.56 [place] # (Auto) 0.68 Eos # (Auto) 0.24 Baso # (Auto) 0.06 Absolute Neutrophils 3.37 Sodium 141 Potassium 3.6 Chloride 106 Carbon Dioxide 26 Anion Gap 9.0 BUN 17 Creatinine 1.0 GFR Calculation 53 Glucose 91 Uric Acid 6.3 Calcium 8.8 Phosphorus 3.7 Magnesium 1.9 Total Bilirubin 0.2 Direct Bilirubin < 0.2 GGT 8 AST 22 ALT 13 Alkaline Phosphatase 66 Lactate Dehydrogenase 195 Total Protein 6.2 Albumin 3.0 L Globulin 3.2 Albumin/Globulin Ratio 0.9 L Triglycerides 77 Preliminary micro results at discharge 12/01/20 12:46 Blood Culture - Preliminary Blood 12/01/20 12:10 Blood Culture - Preliminary Blood Discharge Plan Patient/Caregiver Discharge Instructions Activity: increase activity as tolerated Diet: Consistent Carbohydrate Prescriptions: New lisinopril 5 mg Tablet 5 mg PO DAILY Qty: 30 RF: 4 Continued duloxetine 60 mg capsule,delayed release(DR/EC) 60 mg PO QDAY Qty: 90 RF: 1 hydroxyzine HCl 25 mg tablet 25 mg PO QDAY PRN (Reason: anxiety) Qty: 20 RF: 0 cyanocobalamin (vitamin B-12) 1,000 mcg/mL solution 1,000 mcg IM QMONTH Qty: 3 RF: 1 levothyroxine 100 mcg tablet 100 mcg PO QDAY Qty: 90 RF: 1 omeprazole 40 mg capsule,delayed release(DR/EC) 40 mg PO QDAY Qty: 90 RF: 1 ferrous sulfate 325 mg (65 mg iron) tablet 325 mg PO BID Qty: 180 RF: 1 amlodipine 10 mg tablet 10 mg PO QDAY Qty: 90 RF: 1 pregabalin 150 mg capsule 150 mg PO TID Qty: 90 RF: 2 solace cream 300mg CBD/3mg THC See Rx Instructions .ROUTE .COMPLEX RF: 0 cholecalciferol (vitamin D3) 50 mcg (2,000 unit) capsule 50 mcg PO QDAY RF: 0 ascorbic acid (vitamin C) 500 mg capsule 500 mg PO BID RF: 0 [id number]-kopjwhfz-[id number] 1 tab PO QDAY RF: 0 calcium carbonate 500 mg calcium (1,250 mg) tablet,chewable 500 mg PO BID RF: 0 melatonin 5 mg capsule 10 mg PO QHS RF: 0 miconazole nitrate 2 % cream 1 applic TOPICAL PRN RF: 0 nystatin 100,000 unit/gram powder 1 applic TOPICAL BID PRN (Reason: redness) RF: 0 acetaminophen 650 mg tablet extended release 650 mg PO TID RF: 0 aspirin [Adult Aspirin Regimen] 81 mg tablet,delayed release (DR/EC) 81 mg PO QDAY Qty: 90 RF: 3 rosuvastatin 5 mg tablet 5 mg PO QDAY Qty: 90 RF: 3 buspirone 5 mg tablet 5 mg PO BID RF: 0 Discontinued oxycodone 5 mg tablet 5 mg PO BID Qty: 60 RF: 0 Follow Up Plan Follow up with: Julius Jimenez MD [Primary Care Provider] - Patient Disposition: Home, Self-Care Prognosis: Fair Overall status at discharge: patient is progressing back to baseline Discharge Orders: Discharge Order (Routine); Ordered 12/03/20 Ordered By: Marvel WAGNER VTE Deep Vein Thrombosis/Pulmonary Embolism Present on Admission: No
[2020-12-03] MEDS ORDERED: FLU VACC QS2021-22(6MOS UP)/PF 60 MCG/0.5 ML SYRINGE IM ONE (11:45)
[2020-12-03] MEDS ORDERED: PNEUMOCOCCAL 23-VAL P-SAC VAC 0.5 ML SYRINGE IM ONE (11:45)
[2020-12-03] MEDS: DULoxetine 30 MG CAPSULE PO SCH (11:50)
[2020-12-03] MEDS: MELATONIN 3 MG TABLET PO SCH (23:23)
[2020-12-04] MEDS: 0.9 % SODIUM CHLORIDE 10 ML SYRINGE IV SCH (06:11)
[2020-12-04] MEDS: amLODIPine 10 MG TABLET PO SCH (08:37)
[2020-12-04] MEDS: PREGABALIN 150 MG CAPSULE PO SCH (08:37)
[2020-12-04] MEDS: busPIRone 5 MG TABLET PO SCH (08:38)
[2020-12-04] MEDS: DOCUSATE SODIUM 100 MG CAPSULE PO SCH (08:38)
[2020-12-04] MEDS: LEVOTHYROXINE 100 MCG TABLET PO SCH (08:38)
[2020-12-04] MEDS: OMEPRAZOLE 20 MG CAPSULE PO SCH (08:38)
[2020-12-04] MEDS: LISINOPRIL 5 MG TABLET PO SCH (08:38)
[2020-12-04] MEDS: ATORVASTATIN 10 MG TABLET PO SCH (08:38)
[2020-12-04] MEDS: DULoxetine 30 MG CAPSULE PO SCH (08:38)
[2020-12-04] MEDS: ENOXAPARIN 40 MG/0.4 ML SYRINGE SQ SCH (08:39)
[2020-12-04] MEDS ORDERED: PNEUMOCOCCAL 23-VAL P-SAC VAC 0.5 ML SYRINGE IM ONE (10:00)
[2020-12-04] MEDS ORDERED: FLU VACC QS2021-22(6MOS UP)/PF 60 MCG/0.5 ML SYRINGE IM ONE (10:15)
== END 2020-12-04 12:05 | disposition home or self-care (01) | DRG 917 ==
LOC: ED 11:45 → ICU 17:55 → MEDSUR 12-02 14:44
PROVIDERS: ADMIT Internal Medicine; ATTEND Internal Medicine

== ENCOUNTER 2024-08-06 09:30 | Inpatient (IN) ==
[2024-08-06] MEDS ORDERED: IOPAMIDOL 100 ML BOTTLE IV ONE (09:31)
[2024-08-06 10:28] LABS: Basophils # (Auto) 0.06 K/mcL (0.00-0.30); Basophils % (Auto) 0.6 % (0.0-2.0); Eosinophils # (Auto) 0.35 K/mcL (0.00-0.70); Eosinophils % (Auto) 3.5 % (0.0-7.0); Hematocrit 34.7 % (34.1-44.9); Hemoglobin 10.7 g/dL (11.2-15.7); Lymphocytes # (Auto) 1.57 K/mcL (1.50-4.80); Lymphocytes % (Auto) 15.7 % (15.5-49.0); Mean Cell Volume 93.5 fL (80.0-100.0); Mean Corpuscular HGB Conc 30.8 g/dL (31.0-36.0); Mean Platelet Volume 10.7 fL (8.8-12.5); Monocytes # (Auto) 0.77 K/mcL (0.10-0.90); Monocytes % (Auto) 7.7 % (1.0-12.0); Neutrophils % (Auto) 72.3 % (38.0-78.0); Platelet Count 139 K/mcL (140-440); RBC 3.71 M/mcL (3.59-5.38); Red Cell Distribution Width 15.8 % (11.5-14.5)
[2024-08-06 10:45] LABS: INR 0.9 (0.9-1.1); Prothrombin Time 12.9 sec (11.9-14.5)
[2024-08-06 10:49] LABS: ALT/SGPT 12 U/L (<40); AST/SGOT 24 U/L (<32); Albumin 3.7 gm/dL (3.2-5.2); Albumin/Globulin Ratio 1.2 (1.0-2.3); Alkaline Phosphatase 65 U/L (39-117); Bilirubin,Total 0.3 mg/dL (0.1-1.0); Blood Urea Nitrogen 30 mg/dL (8-23); Calcium 8.8 mg/dL (8.6-10.4); Carbon Dioxide 29 mmol/L (22-30); Chloride 107 mmol/L (96-108); Globulin 3.2 gm/dL (2.2-3.7); Glomerular Filtration Rate 41; Glucose 75 mg/dL (70-105); Potassium 4.2 mmol/L (3.3-5.1); Sodium 145 mmol/L (133-145)
[2024-08-06] MEDS: PANTOPRAZOLE 40 MG VIAL IV ONE (11:53)
[2024-08-06] MEDS: 0.9 % SODIUM CHLORIDE 250 ML IV SCH ×2 (12:27→21:00)
[2024-08-06] MEDS ORDERED: IPRATROPIUM/ALBUTEROL 3 ML AMPUL.NEB NEB PRN (14:57)
[2024-08-06] MEDS ORDERED: ONDANSETRON 4 MG/2 ML VIAL IV PRN (14:57)
[2024-08-06] MEDS ORDERED: ACETAMINOPHEN 325 MG TABLET PO PRN (14:57)
[2024-08-06] MEDS ORDERED: hydrOXYzine 25 MG TABLET PO PRN (15:27)
[2024-08-06] MEDS ORDERED: MICONAZOLE NITRATE TP PRN (15:27)
[2024-08-06] MEDS: PANTOPRAZOLE 40 MG VIAL IV SCH (16:42)
[2024-08-06] MEDS: 0.9 % SODIUM CHLORIDE 10 ML SYRINGE IV SCH (16:42)
[2024-08-06 18:47] LABS: Basophils # (Auto) 0.03 K/mcL (0.00-0.30); Basophils % (Auto) 0.5 % (0.0-2.0); Eosinophils # (Auto) 0.26 K/mcL (0.00-0.70); Eosinophils % (Auto) 4.5 % (0.0-7.0); Hematocrit 30.8 % (34.1-44.9); Hemoglobin 9.4 g/dL (11.2-15.7); Lymphocytes # (Auto) 1.03 K/mcL (1.50-4.80); Lymphocytes % (Auto) 17.9 % (15.5-49.0); Mean Cell Volume 95.1 fL (80.0-100.0); Mean Corpuscular HGB Conc 30.5 g/dL (31.0-36.0); Mean Platelet Volume 11.4 fL (8.8-12.5); Monocytes # (Auto) 0.51 K/mcL (0.10-0.90); Monocytes % (Auto) 8.9 % (1.0-12.0); Platelet Count 115 K/mcL (140-440); RBC 3.24 M/mcL (3.59-5.38); Red Cell Distribution Width 16.1 % (11.5-14.5); WBC 5.8 K/mcL (4.5-11.0)
[2024-08-06] MEDS: CALCIUM CARBONATE 500 MG TAB.CHEW PO SCH (19:00)
[2024-08-06] MEDS: traZODone HCL 50 MG TABLET PO SCH (19:00)
[2024-08-06] MEDS: buPROPion 150 MG TAB.XL.24H PO SCH (19:00)
[2024-08-06] MEDS: ACETAMINOPHEN 325 MG TABLET PO SCH (19:00)
[2024-08-06] MEDS: FERROUS SULFATE 325 MG TABLET PO SCH (19:00)
[2024-08-06] MEDS: ATORVASTATIN 10 MG TABLET PO SCH (19:00)
[2024-08-06] MEDS: MELATONIN 3 MG TABLET PO SCH (21:00)
[2024-08-06] MEDS: BISACODYL 5 MG TABLET PO ONE (21:00)
[2024-08-06] MEDS: METHOCARBAMOL 500 MG TABLET PO SCH (21:00)
[2024-08-06] MEDS: PEG 3350/NA SULF,BICARB,CL/KCL 4,000 ML ORAL.SOL PO ONE (21:34)
[2024-08-06] MEDS: PREGABALIN 150 MG CAPSULE PO SCH (21:58)
[2024-08-06] MEDS ORDERED: MAGNESIUM CITRATE 300 ML ORAL.SOL PO ONE (22:00)
[2024-08-06] MEDS: MAGNESIUM CITRATE 300 ML ORAL.SOL PO ONE (23:01)
[2024-08-07] MEDS ORDERED: MAGNESIUM CITRATE 300 ML ORAL.SOL PO ONE (01:00)
[2024-08-07] MEDS: MAGNESIUM CITRATE 300 ML ORAL.SOL PO ONE (01:00)
[2024-08-07] MEDS: 0.9 % SODIUM CHLORIDE 1,000 ML IV SCH (05:40)
[2024-08-07] MEDS: DULoxetine 30 MG CAPSULE PO SCH (07:19)
[2024-08-07] MEDS: VITAMIN D3 25 MCG TABLET PO SCH (07:20)
[2024-08-07] MEDS: LEVOTHYROXINE 100 MCG TABLET PO SCH (07:20)
[2024-08-07] MEDS ORDERED: CYANOCOBALAMIN 1,000 MCG/ML VIAL IM SCH (09:00)
[2024-08-07 09:51] LABS: Basophils # (Auto) 0.04 K/mcL (0.00-0.30); Basophils % (Auto) 0.7 % (0.0-2.0); Eosinophils # (Auto) 0.29 K/mcL (0.00-0.70); Eosinophils % (Auto) 4.9 % (0.0-7.0); Hemoglobin 8.7 g/dL (11.2-15.7); Lymphocytes # (Auto) 1.19 K/mcL (1.50-4.80); Lymphocytes % (Auto) 20.3 % (15.5-49.0); Mean Cell Volume 93.6 fL (80.0-100.0); Mean Corpuscular HGB Conc 31.1 g/dL (31.0-36.0); Mean Platelet Volume 11.2 fL (8.8-12.5); Monocytes # (Auto) 0.59 K/mcL (0.10-0.90); Monocytes % (Auto) 10.1 % (1.0-12.0); Neutrophils % (Auto) 63.7 % (38.0-78.0); Platelet Count 108 K/mcL (140-440); RBC 2.99 M/mcL (3.59-5.38); Red Cell Distribution Width 15.8 % (11.5-14.5); WBC 5.9 K/mcL (4.5-11.0)
[2024-08-07] MEDS: MAGNESIUM CITRATE 300 ML ORAL.SOL PO SCH (09:58)
[2024-08-07] MEDS: POLYETHYLENE GLYCOL 3350 17 GM PACKET PO SCH (09:58)
[2024-08-07 17:10] LABS: Hematocrit 26.6 % (34.1-44.9); Hemoglobin 8.1 g/dL (11.2-15.7)
[2024-08-07 21:02] LABS: Hematocrit 25.5 % (34.1-44.9); Hemoglobin 7.8 g/dL (11.2-15.7)
[2024-08-08] MEDS: BUTALB/ACETAMINOPHEN/CAFFEINE 1 TABLET PO PRN (00:37)
[2024-08-08] MEDS: 0.9 % SODIUM CHLORIDE 250 ML IV SCH (00:37)
[2024-08-08 09:17] LABS: Basophils # (Auto) 0.04 K/mcL (0.00-0.30); Basophils % (Auto) 1.2 % (0.0-2.0); Eosinophils # (Auto) 0.26 K/mcL (0.00-0.70); Eosinophils % (Auto) 7.9 % (0.0-7.0); Hematocrit 31.8 % (34.1-44.9); Hemoglobin 10.1 g/dL (11.2-15.7); Lymphocytes # (Auto) 1.31 K/mcL (1.50-4.80); Lymphocytes % (Auto) 39.7 % (15.5-49.0); Mean Cell Volume 91.6 fL (80.0-100.0); Mean Corpuscular HGB Conc 31.8 g/dL (31.0-36.0); Monocytes # (Auto) 0.44 K/mcL (0.10-0.90); Monocytes % (Auto) 13.3 % (1.0-12.0); Neutrophils % (Auto) 37.3 % (38.0-78.0); Platelet Count 108 K/mcL (140-440); RBC 3.47 M/mcL (3.59-5.38); WBC 3.3 K/mcL (4.5-11.0)
[2024-08-08] MEDS ORDERED: KETAMINE 50 MG/ML Syringe IV ONE (09:18)
[2024-08-08] MEDS ORDERED: MIDAZOLAM 2 MG/2 ML VIAL ONE (09:18)
[2024-08-08] MEDS ORDERED: EPINEPHrine 1 MG/10 ML (1:10,000) SYRINGE IV ONE ×2 (12:01→12:08)
[2024-08-08] MEDS: EPINEPHrine 1 MG/ML VIAL ONE (12:07)
[2024-08-08 13:03] LABS: Basophils # (Auto) 0.05 K/mcL (0.00-0.30); Basophils % (Auto) 0.9 % (0.0-2.0); Eosinophils # (Auto) 0.26 K/mcL (0.00-0.70); Eosinophils % (Auto) 4.7 % (0.0-7.0); Hematocrit 28.1 % (34.1-44.9); Hemoglobin 8.7 g/dL (11.2-15.7); Lymphocytes # (Auto) 0.95 K/mcL (1.50-4.80); Lymphocytes % (Auto) 17.1 % (15.5-49.0); Mean Cell Volume 92.7 fL (80.0-100.0); Mean Platelet Volume 11.4 fL (8.8-12.5); Monocytes # (Auto) 0.54 K/mcL (0.10-0.90); Monocytes % (Auto) 9.7 % (1.0-12.0); Neutrophils % (Auto) 67.1 % (38.0-78.0); Platelet Count 94 K/mcL (140-440); RBC 3.03 M/mcL (3.59-5.38); Red Cell Distribution Width 16.5 % (11.5-14.5); WBC 5.6 K/mcL (4.5-11.0)
[2024-08-08] MEDS ORDERED: 0.9 % SODIUM CHLORIDE 250 ML IV SCH (13:15)
[2024-08-08] MEDS ORDERED: ePHEDrine 50 MG/5 ML SYRINGE (ANEST) IV ONE (13:32)
[2024-08-08] MEDS ORDERED: PHENYLephrine 1 MG/10 ML SYRINGE (ANEST) IV ONE (13:32)
[2024-08-08] MEDS ORDERED: ONDANSETRON 4 MG/2 ML VIAL IV ONE (13:32)
[2024-08-08] MEDS ORDERED: PROPOFOL 200 MG/20 ML VIAL IV ONE (13:32)
[2024-08-08] MEDS ORDERED: LIDOCAINE 2% PF 5 ML VIAL IJ ONE (13:32)
[2024-08-08] MEDS ORDERED: GLYCOPYRROLATE 0.2 MG/ML VIAL IV ONE (13:32)
[2024-08-08 15:11] VITALS: TEMP 98.2; O2SAT 97
== END 2024-08-08 14:15 | disposition short-term general hospital (02) | DRG 378 ==
LOC: ED 09:30 → MEDSUR 14:51 → ICU 08-08 12:40
PROVIDERS: ADMIT Internal Medicine; ATTEND Internal Medicine